=== PATIENT | female | born 1985 | race African-American/Black ===

== ENCOUNTER 2016-07-04 15:26 | Outpatient (CLI) | payer OTHER ==
[2016-07-04 16:08] LABS: Hematocrit 33.4 % (30.3-42.9); Mean Corpuscular HGB Conc 33 % (30-34); Red Blood Count 5.63 M/mm3 (3.65-5.03); Red Cell Distribution Width 16.9 % (13.2-15.2); White Blood Count 8.6 K/mm3 (4.5-11.0)
[2016-07-04 16:09] LABS: Mean Corpuscular Hemoglobin 20 pg (28-32); Mean Corpuscular Volume 59 fl (79-97)
[2016-07-04 16:31] LABS: Anion Gap 21 mmol/L; BUN/Creatinine Ratio 11.42; Bilirubin,Total 0.4 mg/dL (0.1-1.2); Blood Urea Nitrogen 8 mg/dL (7-17); Calcium 9.1 mg/dL (8.4-10.2); Carbon Dioxide 22 mmol/L (22-30); Chloride 99.5 mmol/L (98-107); Glucose 73 mg/dL (65-100); Potassium 3.7 mmol/L (3.6-5.0); Sodium 139 mmol/L (137-145); Total Protein 8.9 g/dL (6.3-8.2)
[2016-07-04 17:00] LABS: Platelet Count 300 K/mm3 (140-440)
[2016-07-04 17:33] LABS: Erythrocyte Sedimentation Rate 37 mm/Hr (0-20)
[2016-07-04 17:43] LABS: Alanine Aminotransferase 16 units/L (7-56); Albumin 4.7 g/dL (3.9-5); Albumin/Globulin Ratio 1.1 %; Alkaline Phosphatase 61 units/L (35-129); Creatine Kinase 162 units/L (30-135); Uric Acid 4.9 mg/dL (3.5-7.6)
[2016-07-04 19:35] LABS: HIV-1 Antigen p24 Non React (Non React); HIVR-1/2 Ab Non React (Non React)
[2016-07-06 17:28] LABS: Vitamin D, 25-OH, Total 17 ng/mL (30-100)
== END 2016-07-04 15:27 | disposition home or self-care (01) ==
LOC: LAB 15:26
PROVIDERS: ATTEND Specialist
DX: G65.1 Sequelae of other inflammatory polyneuropathy (principal)
CPT/HCPCS: 36415; 80053; 82085; 82306; 82550; 82607; 83036; 83921; 84443; 84550; 85027; 85652; 86038; 86225; 86592; 86618; 87806

== ENCOUNTER 2018-07-02 15:43 | Inpatient (IN) | payer MEDICAID ==
[2018-07-02] MEDS ORDERED: AMPICILLIN/NS 2 GM/100 ML 2 GM/100 ML BAG IV ONE (17:00)
[2018-07-02] MEDS ORDERED: PITOCin/NS 20 UNIT/1000ML DRIP 20 UNITS/1,000 ML BAG IV SCH (17:00)
[2018-07-02] MEDS: LACTATED RINGERS 1,000 ML IV SCH ×2 (17:37→18:45)
[2018-07-02 17:50] LABS: Hematocrit 31.9 % (30.3-42.9); Hemoglobin 10.4 gm/dl (10.1-14.3); Red Blood Count 4.71 M/mm3 (3.65-5.03)
[2018-07-02 17:51] LABS: Mean Corpuscular HGB Conc 33 % (30-34); Red Cell Distribution Width 18.2 % (13.2-15.2)
[2018-07-02 17:55] LABS: Mean Corpuscular Volume 68 fl (79-97); Platelet Count 285 K/mm3 (140-440)
[2018-07-02 18:00] LABS: Bilirubin,Urine NEG (Negative); Blood,Urine LG (Negative); Color,Urine Red (Yellow); Urobilinogen,Urine < 2.0 mg/dL (<2.0)
[2018-07-02] MEDS ORDERED: SUBLIMAZE IV PRN (18:01)
[2018-07-02 18:03] LABS: RBC,Urine > 182.0 /HPF (0.0-6.0)
[2018-07-02 18:22] LABS: Alanine Aminotransferase 15 units/L (7-56)
[2018-07-02] MEDS ORDERED: XYLOCAINE MPF 2% ONE (19:34)
[2018-07-02] MEDS ORDERED: NARCAN 2 MG/2 ML IV PRN (19:57)
--- NOTE | 2018-07-02 19:57 | Anesthesia Consultation ---
Anesthesia Consult and Med Hx Date of service: 07/02/18 - Airway Anesthetic Teeth Evaluation: Good ROM Head & Neck: Adequate Mental/Hyoid Distance: Adequate Mallampati Class: Class I Intubation Access Assessment: Good - Pulmonary Exam CTA: Yes - Cardiac Exam Cardiac Exam: RRR - Pre-Operative Health Status ASA Pre-Surgery Classification: ASA2 Proposed Anesthetic Plan: Epidural - Pulmonary Hx Smoking: No Hx Asthma: Yes (Since Teenager) Hx Respiratory Symptoms: Yes (see above) SOB: No COPD: No Home Oxygen Therapy: No Hx Pneumonia: No Hx Sleep Apnea: No - Cardiovascular System Hx Hypertension: No Hx Coronary Artery Disease: No Hx Cardia Arrhythmia: No - Central Nervous System Hx Neuromuscular Disorder: No Hx Seizures: No Hx Psychiatric Problems: No - Endocrine Hx Renal Disease: No Hx End Stage Renal Disease: No Hx Cirrhosis: No Hx Liver Disease: No Hx Insulin Dependent Diabetes: No Hx Non-Insulin Dependent Diabetes: No Hx Thyroid Disease: No Hx Hypothyroidism: No Hx Hyperthyroidism: No - Hematic Hx Anemia: Yes Hx Sickle Cell Disease: No - Other Systems Hx Alcohol Use: No Hx Substance Use: No Hx Cancer: No Hx Obesity: No - Additional Comments Anesthesia Medical History Comments: Hx of Brain Embolism. Only symptom currently is Migraine headaches
[2018-07-02] MEDS: fentaNYL-BUPIV 2 MCG/ML-0.125% 200 MCG/100 ML BAG EPIDURAL SCH (20:00)
--- NOTE | 2018-07-02 20:04 | History and Physical Report ---
History of Present Illness Date of admission: 07/02/18 15:43 Chief complaint: uterine contractions History of present illness: 32yo at 37 1/7 weeks KATERYNA 07/22/18 that presents in labor. She reports good movement. She states with wiping she has noticed blood and fluid loss. She is a patient at [facility]. Her has been complicated by Hemoglobin E disease - chronic anemia but she declined [facility] referral. She has a history of well-controlled asthma. She also reports a history of a "brain clot" in 2010. Which she said was diagnosed by Dr. Victoriano Lovell, neurologist. She denies any history of heparin, no history of seizures. She states the cerebral embolus caused her to have fibromyalgia. Past History Past Medical History: fibromyalgia, other (history of cerebral embolus) Past Surgical History: [employer]/uterine surgery (abdominal unilateral salpingectomy for ectopic ) Social history: - Obstetrical History : 3 Para: 1 Spontaneous Abortions: 1 Number of Living Children: 1 Medications and Allergies Allergies Allergy/AdvReac Type Severity Reaction Status Date / Time strawberry Allergy Intermediate Itching Verified 05/29/18 16:29 Home Medications Medication Instructions Recorded Confirmed Last Taken Type Albuterol Sulfate [Ventolin Hfa] 1 puff INHALATION QDAY PRN 05/29/18 07/02/18 07/01/18 23:00 History Famotidine [Pepcid] 1 tab PO DAILY 05/29/18 07/02/18 1 Month Ago History ~06/01/18 Ferrous Sulfate [Iron] 1 tab PO BID 05/29/18 07/02/18 07/02/18 10:00 History Nortriptyline HCl 2 tab .ROUTE DAILY 05/29/18 07/02/18 07/01/18 20:15 History Pnv Plus Multivit Tab 1 tab PO DAILY 05/29/18 07/02/18 07/02/18 10:00 History Calcium Carbonate [Tums] 1,000 mg PO BID PRN 07/02/18 07/02/18 2 Days Ago History ~06/30/18 Active Meds: Active Medications Fentanyl (Sublimaze) 100 mcg IV Q2H PRN PRN Reason: Labor Pain Last Admin: 07/02/18 18:31 Dose: 100 mcg Documented by: Ampicillin Sodium (Ampicillin/Ns 1 Gm/50 Ml) 1 gm in 50 mls @ 100 mls/hr IV Q4H JERMAIN Lactated Ringer's (Lactated Ringers) 1,000 mls @ 125 mls/hr IV DIRECT JERMAIN Last Admin: 07/02/18 18:45 Dose: 125 mls/hr Documented by: Oxytocin/Sodium Chloride (Pitocin/Ns 20 Unit/1000ml Drip) 20 units in 1,000 mls @ 0 mls/hr IV DIRECT JERMAIN - Vital Signs Vital signs: Vital Signs Pulse Pulse Ox 96 H 97 07/02/18 16:32 07/02/18 16:32 Temp Pulse Resp BP Pulse Ox 98.2 F 94 H 16 80/44 100 07/02/18 19:07 07/02/18 19:55 07/02/18 19:07 07/02/18 19:55 07/02/18 19:55 - Obstetrical FHR: category 1 Cervical Dilatation: 4 Cervical Effacement Percentage: 90 station: -1 Results Result Diagrams: 07/02/18 17:25 07/02/18 17:25 Abnormal lab results 07/02/18 07/02/18 07/02/18 Range/Units 17:25 17:25 17:25 WBC 16.2 H (4.5-11.0) K/mm3 MCV 68 L (79-97) fl MCH 22 L (28-32) pg RDW 18.2 H (13.2-15.2) % Creatinine 0.6 L (0.7-1.2) mg/dL Lactate Dehydrogenase 280 H (91-180) units/L Urine WBC (Auto) 11.0 H (0.0-6.0) /HPF All other labs normal. Assessment and Plan - Patient Problems (1) 37 weeks gestation of Current Visit: Yes Status: Acute Plan to address problem: Routine labs IVF GBS positive - start antibiotic prophylaxis Anticipate (2) Anemia of chronic disease Current Visit: Yes Status: Acute (3) History of cerebral embolism Current Visit: Yes Status: Acute (4) Fibromyalgia Current Visit: Yes Status: Acute (5) Active labor at term Current Visit: Yes Status: Acute
[2018-07-02] MEDS: AMPICILLIN/NS 1 GM/50 ML 1 GM/50 ML BAG IV SCH (21:00)
[2018-07-03] MEDS: AMPICILLIN/NS 1 GM/50 ML 1 GM/50 ML BAG IV SCH (01:37)
[2018-07-03] MEDS ORDERED: GENTAMICIN/NS 80 MG/100 ML 100 ML IV ONE (03:00)
[2018-07-03] MEDS ORDERED: PITOCin/NS 30 UNIT/500ML 30 UNITS/500 ML BAG IV SCH (03:00)
[2018-07-03] MEDS: fentaNYL-BUPIV 2 MCG/ML-0.125% 200 MCG/100 ML BAG EPIDURAL SCH ×2 (03:15→08:30)
[2018-07-03] MEDS ORDERED: TYLENOL PO PRN (05:12)
[2018-07-03] MEDS ORDERED: CYTOTEC ONE (07:28)
[2018-07-03] MEDS ORDERED: MINERAL OIL ONE ×2 (08:32→08:33)
--- NOTE | 2018-07-03 09:50 | Procedure Note ---
OB Delivery Note - Delivery Date of Delivery: 07/03/18 (0909) Surgeon: INDRA VIZCARRA Estimated blood loss: 200cc - Vaginal Delivery presentation: vertex Delivery position: OP Intrapartum events: febrile- temp >100.3 Delivery induction: none Delivery augmentation: pitocin Delivery monitor: external FHT, external uterine Route of delivery: Delivery placenta: spontaneous Delivery cord: 3 umbilical vessels Episiotomy: none Delivery laceration: 1st degree Delivery repair: vicryl Anesthesia: epidural Delivery comments: of a live 7'3 female infant over a 1st degree vaginal laceration under epidural anesthesia with Apgars of 8 and 9 at 0909 on 07/03/2017. Infant directly to maternal abd/chest, skin to skin contact. Spontaneous delivery of placenta complete and intact with Gutiérrez side presenting at 0912. Fundus is firm and midline located 4 below the U. Lochia is scant. Vaginal laceration repaired with 2-[address]-1. Delayed cord clamping and cutting. Placenta to pathology. Maternal fever during labor; to continue dual ABX coverage x 24 hours . - Infant A at 1 minute: 8 at 5 minutes: 9 Infant Gender: Female (7'3)
[2018-07-03] MEDS ORDERED: SODIUM CHLORIDE FLUSH SYRINGE 10 ML IV PRN (10:00)
--- NOTE | 2018-07-03 10:25 | Post Anesthesia Evaluation ---
- Post Anesthesia Evaluation Patient Participated: Yes Airway Patent: Yes Stable Respiratory Function: Yes Nausea/Vomiting: No Temp > 96.8F: Yes Pain Manageable: Yes Adequeate Hydration: Yes Anesthesia Complications: No Block Receding Appropriately: Yes Patient on Ventilator: Yes
[2018-07-03] MEDS ORDERED: TUCKS PAD TP PRN (10:30)
[2018-07-03] MEDS ORDERED: BENADRYL PO PRN (10:30)
[2018-07-03] MEDS ORDERED: LANSINOH TP PRN (10:30)
[2018-07-03] MEDS: PRENATAL VITAMIN PO SCH (12:28)
[2018-07-03] MEDS: IBUPROFEN PO SCH ×3 (12:28→23:57)
[2018-07-03] MEDS: GENTAMICIN/NS 100 MG/100 ML 100 MG/100 ML BAG IV SCH (17:07)
[2018-07-03 22:44] LABS: Hematocrit 24.9 % (30.3-42.9); Hemoglobin 8.1 gm/dl (10.1-14.3)
[2018-07-04] MEDS: GENTAMICIN/NS 100 MG/100 ML 100 MG/100 ML BAG IV SCH (01:18)
[2018-07-04] MEDS: IBUPROFEN PO SCH ×3 (05:36→18:13)
[2018-07-04] MEDS: PRENATAL VITAMIN PO SCH (10:28)
[2018-07-04] MEDS: FEOSOL PO SCH ×2 (10:28→22:17)
[2018-07-04] MEDS: NORCO 5/325 PO PRN (10:31)
--- NOTE | 2018-07-04 12:09 | Progress Note ---
Assessment and Plan A: PPD#1 s/p Stable Afebrile Desires Depo Provera Desires discharge home today pending peds P: Routine PP orders Depo Provera prior to discharge PPE in 6 weeks Subjective - Subjective Date of service: 07/04/18 Principal diagnosis: PPD#1 s/p Interval history: See H&P and delivery note Patient reports: appetite normal, voiding normally, pain well controlled, flatus, ambulating normally, no bowel movement : doing well, other (breasst/bottle) Objective - Vital Signs Latest vital signs: Vital Signs Temp Pulse Resp BP BP Pulse Ox 07/04/18 07:47 98.6 F 92 H 18 99/58 96 07/04/18 04:00 97.8 F 94 H 18 109/68 97 07/04/18 01:10 97.3 F L 98 H 18 99/55 96 07/03/18 21:04 97.9 F 92 H 18 119/76 98 07/03/18 16:14 98.3 F 95 H 18 107/66 07/03/18 12:18 97.8 F 99 H 18 100/62 96 Intake and Output 07/03/18 07/04/18 07/04/18 23:59 07:59 15:59 Intake Total 600 Output Total 1000 Balance -400 Intake: Oral 600 Output: Urine 1000 Void 1000 Other: Total, Intake Amount 120 Total, Output Amount 600 # Voids Void 1 - Exam Breasts: Present: normal, Cardiovascular: Present: Regular rate, Normal S1, Normal S2, No murmurs Lungs: Present: Clear to auscultation, Normal air movement Abdomen: Present: normal appearance, soft, normal bowel sounds. Absent: distention, tenderness Vulva: both: laceration/episiotomy (well approximated) Uterus: Present: firm, fundal height below umbilicus (-1) Extremities: Present: normal Deep Tendon Reflex Grade: Normal +2 - Labs Labs: Abnormal lab results 07/03/18 Range/Units 22:11 Hgb 8.1 L (10.1-14.3) gm/dl Hct 24.9 L D (30.3-42.9) %
--- NOTE | 2018-07-04 12:11 | Discharge Summary ---
< - Last Filed: 07/04/18 12:09> Providers - Providers Date of Admission: 07/02/18 15:43 Date of discharge: 07/04/18 Attending physician: CHRISTA MARTINI MD Primary care physician: CHRISTA MARTINI MD Hospitalization Reason for admission: active labor, IUP at term Delivery: Procedure details: See H&P and delivery note Episiotomy: none Laceration: 1st degree (well approximated) Other procedures: none complications: none Discharge diagnosis: IUP at term delivered [place] baby: female Condition at discharge: Good Disposition: DC-01 TO HOME OR SELFCARE Plan - Provider Discharge Summary Activity: routine, no sex for 6 weeks, no heavy lifting 4 weeks, no strenuous exercise Diet: routine Instructions: routine Additional instructions: [] Smoking cessation referral if applicable(refer to patient education folder for contact #) [] Refer to [facility] Booklet Call your doctor immediately for: * Fever > 100.5 * Heavy vaginal bleeding ( >1 pad per hour) * Severe persistent headache * Shortness of breath * Reddened, hot, painful area to leg or breast * Drainage or odor from incision. * Keep incision clean and dry at all times and follow doctor's instructions regarding bathing/showering - Follow up plan Follow up: CHRISTA MARTINI MD [Primary Care Provider] - 6 Weeks Forms: [facility] Discharge Summary <CHARLES RUSSELL - Last Filed: 07/05/18 10:55> Providers - Providers Date of Admission: 07/02/18 15:43 Attending physician: CHRISTA MARTINI MD Primary care physician: CHRISTA MARTINI MD Hospitalization - Discharge Diagnoses (1) 37 weeks gestation of Status: Acute (2) Anemia of chronic disease Status: Acute Comment: Anemia of present on admission Anemia of acute blood loss not present on admission (3) History of cerebral embolism Status: Acute (4) Fibromyalgia Status: Acute (5) Active labor at term Status: Acute Plan - Provider Discharge Summary Additional instructions: [] Smoking cessation referral if applicable(refer to patient education folder for contact #) [] Refer to [facility] Booklet Call your doctor immediately for: * Fever > 100.5 * Heavy vaginal bleeding ( >1 pad per hour) * Severe persistent headache * Shortness of breath * Reddened, hot, painful area to leg or breast * Drainage or odor from incision. * Keep incision clean and dry at all times and follow doctor's instructions regarding bathing/showering
[2018-07-04] MEDS ORDERED: DEPO-PROVERA (CONTRACEPTION) IM ONE (12:30)
[2018-07-05] MEDS: IBUPROFEN PO SCH ×4 (00:47→17:57)
[2018-07-05] MEDS ORDERED: BOOSTRIX IM ONE (06:00)
[2018-07-05] MEDS: FEOSOL PO SCH (09:23)
[2018-07-05] MEDS: NORCO 5/325 PO PRN (09:24)
[2018-07-05] MEDS: PRENATAL VITAMIN PO SCH (09:24)
[2018-07-05 17:15] VITALS: BP 120/75
== END 2018-07-05 18:38 | disposition home or self-care (01) | DRG 775 ==
LOC: LD 15:43 → OB 07-03 12:14
PROVIDERS: ADMIT Obstetrics & Gynecology; ATTEND Obstetrics & Gynecology
PROC: 10E0XZZ Delivery of Products of Conception, External Approach (ICD-10-PCS; principal; 2018-07-03)
PROC: 0UQGXZZ Repair Vagina, External Approach (ICD-10-PCS; 2018-07-03)
PROC: 3E0R3BZ Introduction of Anesthetic Agent into Spinal Canal, Percutaneous Approach (ICD-10-PCS; 2018-07-03)
PROC: 00HU33Z Insertion of Infusion Device into Spinal Canal, Percutaneous Approach (ICD-10-PCS; 2018-07-03)
PROC: 3E0234Z Introduction of Serum, Toxoid and Vaccine into Muscle, Percutaneous Approach (ICD-10-PCS; 2018-07-05)
DX: O99.824 Streptococcus B carrier state complicating childbirth (principal); O99.354 Diseases of the nervous system complicating childbirth; M79.7 Fibromyalgia; O70.0 First degree perineal laceration during delivery; D63.8 Anemia in other chronic diseases classified elsewhere; O99.02 Anemia complicating childbirth; O99.52 Diseases of the respiratory system complicating childbirth; J45.909 Unspecified asthma, uncomplicated; G43.909 Migraine, unspecified, not intractable, without status migrainosus; O75.89 Other specified complications of labor and delivery; Z37.0 Single live birth; Z91.018 Allergy to other foods; Z3A.37 37 weeks gestation of pregnancy; Z90.79 Acquired absence of other genital organ(s); Z23 Encounter for immunization
CPT/HCPCS: 36415; 81001; 82565; 83615; 84450; 84460; 84550; 85014; 85018; 85027; 86592; 86850; 86900; 86901; 88307; G0378; J0290; J1050; J1580; J2590; J3010; J7120

== ENCOUNTER 2019-11-25 13:11 | Outpatient (CLI) | payer MEDICAID ==
[2019-11-25 13:50] LABS: Hematocrit 31.8 % (30.3-42.9); Hemoglobin 10.4 gm/dl (10.1-14.3); Mean Corpuscular HGB Conc 33 % (30-34); Red Blood Count 5.44 M/mm3 (3.65-5.03); Red Cell Distribution Width 17.7 % (13.2-15.2)
[2019-11-25 13:53] LABS: Mean Corpuscular Volume 58 fl (79-97)
[2019-11-25 14:03] LABS: Platelet Count 283 K/mm3 (140-440)
[2019-11-25 14:12] LABS: Alanine Aminotransferase 18 units/L (7-56); Albumin 4.6 g/dL (3.9-5); BUN/Creatinine Ratio 13; Blood Urea Nitrogen 10 mg/dL (7-17); Calcium 8.6 mg/dL (8.4-10.2); Hemolysis Index 0
[2019-11-25 14:24] LABS: Erythrocyte Sedimentation Rate 45 mm/Hr (0-20)
[2019-11-29 12:00] LABS: Vitamin D, 25-OH, D2 <4 ng/mL
[2019-11-29 14:01] LABS: ANA Screen, IFA Negative (Negative)
== END 2019-11-25 13:12 | disposition home or self-care (01) ==
LOC: LAB 13:11
PROVIDERS: ATTEND Specialist
DX: G62.9 Polyneuropathy, unspecified (principal); G65.1 Sequelae of other inflammatory polyneuropathy
CPT/HCPCS: 36415; 80053; 82306; 83036; 83921; 84443; 85027; 85652; 86038; 86225; 86592

== ENCOUNTER 2020-02-24 13:38 | Outpatient (CLI) | payer MEDICAID ==
--- NOTE | 2020-02-24 16:23 | Ultrasound Report ---
LIMITED RUQ ABDOMINAL ULTRASOUND INDICATION: RUQ PAIN W + AMIN. COMPARISON: No relevant prior imaging study available. FINDINGS: Pancreas: Visualized portions show no significant abnormality. Abdominal Aorta: No significant abnormality. IVC: No significant abnormality. Liver: The liver measures 15 cm in length. Diffusely increased hepatic echogenicity which typically i ndicates hepatic steatosis.. Normal hepatopedal blood flow in the main portal vein. Gallbladder: Gallbladder appears distended and there are multiple stones in the gallbladder. Sonograp hic Amin's sign positive. Bile ducts: No significant abnormality. Common bile duct measures 4 mm. Right kidney: No significant abnormality visualized.. Free fluid: None. Additional Findings: None. IMPRESSION: 1. Cholelithiasis with gallbladder distention and positive sonographic Amin sign suggestive of acut e cholecystitis. 2. Hepatic steatosis. Signer Name: Samir Taylor MD Signed: 02/24/2020 4:19 PM Workstation Name: [id number]
== END 2020-02-24 13:39 | disposition home or self-care (01) ==
LOC: US 13:38
PROVIDERS: ATTEND Nurse Practitioner Family
DX: K76.0 Fatty (change of) liver, not elsewhere classified (principal); K80.80 Other cholelithiasis without obstruction; K82.8 Other specified diseases of gallbladder
CPT/HCPCS: 76705